=== PATIENT | male | born 1940 | race Caucasian/White ===

== ENCOUNTER 2017-01-24 10:00 | Emergency (ER) | payer MEDICARE, OTHER ==
--- NOTE | 2017-01-24 10:21 | ED Physician Documentation ---
PD HPI ABD PAIN - Stated complaint Stated Complaint: ABD PX - History obtained from History obtained from: Patient, Family - History of Present Illness Timing - onset: How many days ago (3) Timing - duration: Days (3) Timing - details: Gradual onset, Still present Quality: Sharp, Pain Location: RLQ Improved by: Laying still Worsened by: Eating, Moving, Position, Palpation Associated symptoms: Fever, Nausea. No: Vomiting, Diarrhea Similar symptoms before: Has not had sx before Recently seen: Not recently seen - Additional information Additional information: 76-year-old male developed pain in the right lower quadrant 3 days ago. He has had persistence of the pain and yesterday had a decreased appetite. The pain is been worse this morning and after calling his doctor the coming to the emergency department. In the emergency department waiting room the patient became diaphoretic and clammy and was brought back to the department immediately. Review of Systems Constitutional: reports: Chills, Myalgias, Fatigue, Sweats Eyes: denies: Decreased vision Ears: denies: Ear pain Nose: denies: Congestion Throat: denies: Sore throat Cardiac: denies: Chest pain / pressure, Palpitations Respiratory: denies: Dyspnea, Cough GI: reports: Abdominal Pain, Nausea. denies: Vomiting, Diarrhea : denies: Dysuria, Frequency Skin: denies: Rash Musculoskeletal: denies: Neck pain, Back pain, Extremity pain PD PAST MEDICAL HISTORY - Past Medical History Cardiovascular: Hypertension Endocrine/Autoimmune: Type 2 diabetes - Past Surgical History Past Surgical History: No - Present Medications Home Medications: Ambulatory Orders Medication Instructions Recorded Confirmed Lisinopril/Hydrochlorothiazide 1 mg PO DAILY 03/24/14 01/24/17 [Lisinopril-Hctz 10-12.5 mg Tab] Lovastatin 20 mg PO DAILY 03/24/14 01/24/17 Terbinafine [Lamisil] 1 tab PO DAILY #28 tablet 03/24/14 01/24/17 glipiZIDE [Glucotrol] 5 mg PO BID 03/24/14 01/24/17 metFORMIN [Glucophage] 850 mg PO DAILY 03/24/14 01/24/17 - Allergies Allergies/Adverse Reactions: Allergies Allergy/AdvReac Type Severity Reaction Status Date / Time No Known Drug Allergies Allergy Verified 03/24/14 12:39 - Social History Does the pt smoke?: No Smoking Status: Never smoker Does the pt drink ETOH?: Yes Does the pt have substance abuse?: No - Immunizations Immunizations are current?: Yes PD ED PE NORMAL - Vitals Vital signs reviewed: Yes - General General: Well developed/nourished, Other (76 y/o male appears pale diaphoretic and stunned with motteld skin. ) - HEENT HEENT: Atraumatic, PERRL - Neck Neck: Supple, no meningeal sign - Respiratory Respiratory: No respiratory distress, Clear bilaterally - Abdomen Abdomen: Soft, Other (RLQ tenderness with rebound referrred tenderness to the RLQ) - Back Back: No CVA TTP, No spinal TTP - Derm Derm: Other (The skin of the lower body is mottled ) - Extremities Extremities: No deformity, No edema - Neuro Neuro: No motor deficit, No sensory deficit Eye Opening: Spontaneous Motor: Obeys Commands Verbal: Oriented GCS Score: 15 - Psych Psych: Normal mood, Normal affect Results - Vitals Vitals: Vital Signs - 24 hr 01/24/17 01/24/17 01/24/17 10:09 10:15 10:21 Temperature 35.8 C L Heart Rate 55 L 127 H Respiratory 22 24 Rate Blood Pressure 144/115 H 99/81 H O2 Saturation 85 L 01/24/17 01/24/17 10:37 11:24 Temperature Heart Rate 66 66 Respiratory 20 Rate Blood Pressure O2 Saturation Oxygen O2 Source Non-rebreather mask - EKG (time done) 1008 Rate: Rate (enter#) (55) Rhythm: Sinus bradycardia Intervals: Prolonged IN Ischemia: ST elevation c/w ischemia (isolated to III), ST depression (mild anterolateral) Compare to prior EKG: Old EKG unavailable Computer interpretation: Agree with computer - Labs Labs: Laboratory Tests 01/24/17 01/24/17 01/24/17 10:16 10:16 10:16 WBC 13.6 H RBC 2.95 L Hgb 10.2 L Hct 31.2 L MCV 106.0 H MCH 34.7 H MCHC 32.8 RDW 13.0 Plt Count 148 MPV 6.6 L Neut # 9.9 H Lymph # 2.6 [place] # 1.0 Eos # 0.0 Baso # 0.0 Absolute Nucleated RBC 0.00 Nucleated RBC % 0.0 Sodium 130 L Potassium 3.9 Chloride 95 L Carbon Dioxide 14 L Anion Gap 21.0 H BUN 61 H Creatinine 3.0 H Estimated GFR (MDRD) 21 L Glucose 391 H Lactic Acid Calcium 8.9 Total Bilirubin 0.7 AST 24 ALT 16 Alkaline Phosphatase 36 L Troponin I < 0.04 Total Protein 7.3 Albumin 3.9 Globulin 3.4 Albumin/Globulin Ratio 1.1 Lipase 17 L Urine Color Urine Clarity Urine pH Ur Specific [place] Urine Protein Urine Glucose (UA) Urine Ketones Urine Occult Blood Urine Nitrite Urine Bilirubin Urine Urobilinogen Ur Leukocyte Esterase Urine RBC Urine WBC Ur Squamous Epith Cells Urine Bacteria Urine Casts Ur Microscopic Review Urine Culture Comments 01/24/17 01/24/17 10:20 11:29 WBC RBC Hgb Hct MCV MCH MCHC RDW Plt Count MPV Neut # Lymph # [place] # Eos # Baso # Absolute Nucleated RBC Nucleated RBC % Sodium Potassium Chloride Carbon Dioxide Anion Gap BUN Creatinine Estimated GFR (MDRD) Glucose Lactic Acid 9.3 H* Calcium Total Bilirubin AST ALT Alkaline Phosphatase Troponin I Total Protein Albumin Globulin Albumin/Globulin Ratio Lipase Urine Color YELLOW Urine Clarity SL. CLOUDY Urine pH 5.5 Ur Specific [place] >=1.030 H Urine Protein NEGATIVE Urine Glucose (UA) NEGATIVE Urine Ketones TRACE Urine Occult Blood NEGATIVE Urine Nitrite NEGATIVE Urine Bilirubin NEGATIVE Urine Urobilinogen 0.2 (NORMAL) Ur Leukocyte Esterase NEGATIVE Urine RBC 0-5 Urine WBC 0-3 Ur Squamous Epith Cells NONE SEEN Urine Bacteria Many H Urine Casts 6-10 Hyaline Casts Ur Microscopic Review INDICATED Urine Culture Comments INDICATED Procedures - Intubation Provider: Emergency physician Medications: Other (none) Blade: Glidescope Tube: Size-enter number (7-0), Cuffed Confirmation: Direct visualization, Bilateral breath sounds, No abdominal breath sound, End tidal CO2, Pulse ox, Chest xray Complications: No compications - IVC sono (time) 1020 Bedside IVC sono: IVC measures (cm) (flat), Low CVP PD MEDICAL DECISION MAKING - ED course Complexity details: considered differential, d/w patient, d/w family ED course: With use of bedside ultrasound the bladder is imaged there is free fluid in the pelvis and the bladder is not over distended. 76-year-old male with history of hypertension and diabetes has developed right lower quadrant abdominal pain that is been ongoing for 3 days. He arrives to the emergency department and has a decompensation after arrival. He appears mottled and there is concern of rupture with sepsis. The patient decompensates further with bradycardia and apnea. CPR is begun patient is given intravenous atropine followed by intravenous epinephrine with return of spontaneous circulation and low blood pressure. He is started on levophed an airway is placed by me and central line is placed by anesthesia. Dr. Sellers is consulted in the case for continued recusitation. The patient does not survive despite adequate fluids and pressors. See detailed code note by RN. His initial lactate is 9.3. Departure - Departure Disposition: 20 Clinical Impression: Rupture of appendix Sepsis Qualifiers: Sepsis type: sepsis due to unspecified organism Qualified Code(s): A41.9 - Sepsis, unspecified organism
[2017-01-24 10:22] VITALS: BP 99/81
[2017-01-24 10:24] LABS: BASOPHILS % (AUTO) 0.1 %; EOSINOPHILS % (AUTO) 0.1 %; HCT - HEMATOCRIT 31.2 % (42.0-52.0); HGB - HEMOGLOBIN 10.2 g/dL (14.0-18.0); LYMPHOCYTES # (AUTO) 2.6 10^3/uL (1.5-3.5); LYMPHOCYTES % (AUTO) 19.3 %; MEAN CORPUSCULAR HEMOGLOBIN 34.7 pg (27.0-31.0); MEAN CORPUSCULAR HGB CONC 32.8 g/dL (32.0-36.0); MEAN PLATELET VOLUME 6.6 fL (7.4-11.4); MONOCYTES % (AUTO) 7.5 %; NEUTROPHILS # (AUTO) 9.9 10^3/uL (1.5-6.6); RED BLOOD COUNT 2.95 10^6/uL (4.70-6.10); UNCORRECTED WHITE BLOOD COUNT 13.6 x10^3/uL; WHITE BLOOD COUNT 13.6 x10^3/uL (4.8-10.8)
[2017-01-24] MEDS ORDERED: AMPICILLIN/SULBACTAM 3 GM in SODIUM CHLORIDE 0.9% MINIBAG 100 ML IV STA (10:25)
[2017-01-24] MEDS ORDERED: IPRATROPIUM/ALBUTEROL 3 ML NEB INH STA (10:31)
[2017-01-24] MEDS ORDERED: IPRATROPIUM/ALBUTEROL 3 ML NEB INH ONE (10:37)
[2017-01-24 10:38] LABS: ALBUMIN/GLOBULIN RATIO 1.1 (1.0-2.2); BILIRUBIN,TOTAL 0.7 mg/dL (0.2-1.0); CALCIUM 8.9 mg/dL (8.5-10.3); POTASSIUM 3.9 mmol/L (3.5-5.0); TOTAL PROTEIN 7.3 g/dL (6.7-8.2)
[2017-01-24] MEDS ORDERED: SODIUM BICARBONATE ABBOJECT 50 MEQ/50 ML SYRINGE IVP ONE (11:00)
[2017-01-24] MEDS ORDERED: ATROPINE ABBOJECT 1 MG/10 ML SYRINGE IVP ONE (11:00)
[2017-01-24] MEDS ORDERED: EPINEPHrine ABBOJECT 1 MG/10 ML SYRINGE IVP ONE (11:00)
[2017-01-24 11:43] LABS: BILIRUBIN,URINE NEGATIVE (NEGATIVE); PH,URINE 5.5 PH (5.0-7.5)
[2017-01-24 11:44] LABS: UA w/ MICROSCOPIC CHARGE YES
[2017-01-24] MEDS ORDERED: SODIUM CHLORIDE 0.9% 1,000 ML IV ONE ×3 (11:48→13:29)
[2017-01-24 11:58] LABS: UR CULTURE IF IND INDICATED; WBC,URINE 0-3 /HPF (0-3)
--- NOTE | 2017-01-24 12:36 | XRAY Preliminary Report ---
Exam: XR CHEST 1 VIEW IMPRESSION: 1. Left basilar airspace disease and bibasilar atelectasis. 2. Enteric tube tip overlies the distal esophagus. 3. Endotracheal tube tip lies 3.1 cm above [place]. [facility] SITE ID: [id number]
--- NOTE | 2017-01-24 12:39 | XRAY Report ---
EXAM: CHEST RADIOGRAPHY EXAM DATE: 01/24/2017 11:51 AM. CLINICAL HISTORY: Intubation, line placement, NG placement. COMPARISON: None. TECHNIQUE: 1 view. FINDINGS: Lungs/Pleura: Low lung volumes. No pneumothorax. Left basilar atelectasis and airspace disease. Mild right basilar atelectasis. Mediastinum: Atherosclerotic aortic calcifications. Other: Endotracheal tube tip lies 3.1 cm above [place]. Enteric tube tip overlies the distal esophagus. Right IJ central line with tip overlying middle third of the SVC. IMPRESSION: 1. Left basilar airspace disease and bibasilar atelectasis. 2. Enteric tube tip overlies the distal esophagus. 3. Endotracheal tube tip lies 3.1 cm above [place]. [facility] Referring Provider Line: [phone] SITE ID: [id number]
== END 2017-01-24 20:12 | disposition expired ==
LOC: ED 10:00
DX: K35.2 Acute appendicitis with generalized peritonitis (principal); A41.9 Sepsis, unspecified organism; R00.1 Bradycardia, unspecified; R06.81 Apnea, not elsewhere classified; I10 Essential (primary) hypertension; E11.9 Type 2 diabetes mellitus without complications; Z79.84 Long term (current) use of oral hypoglycemic drugs
CPT/HCPCS: 31500; 36556; 51702; 71010; 80053; 81001; 83605; 83690; 84484; 85025; 87040; 87086; 92950; 93005; 96361; 96365; 96366; 99285; J7620; 81003